=== PATIENT | female | born 1960 | race Caucasian/White ===

== ENCOUNTER 2025-03-12 11:39 | Emergency (ER) | payer OTHER, MEDICARE ==
[~2025-03-12] VITALS: Ht 167.6 cm; Wt 117.9 kg
[~2025-03-12 11:39] MED LIST: ASPI81EC PO; ATOR80 PO; Aspir 8181 MG PO; Diclofenac Sodi50 MG PO; ESCI10 PO; FOLI1 PO; METOPROLOL; MOTION RELIEF25 MG PO; MULVITA PO; Norvasc10 MG PO; OLMESARTAN-HCT1 EAC5 PO; PLAVIX75 MG PO
[2025-03-12] MEDS ORDERED: Morphine Sulfate 4 MG/1 ML Injection IV ONE (12:15)
[2025-03-12 12:38] LABS: BASOPHILS ABSOLUTE AUTO 0.06 K/mm3 (0.00-0.23); BASOPHILS PERCENT AUTO 1 % (0-2); EOSINOPHILS ABSOLUTE AUTO 0.04 K/mm3 (0.00-0.68); EOSINOPHILS PERCENT AUTO 0 % (0-6); Hematocrit 44.2 % (33.0-51.0); Hemoglobin 14.7 g/dL (11.5-16.0); IMMATURE GRAN ABSOLUTE AUTO 0.08 K/mm3 (0.00-0.10); IMMATURE GRAN PERCENT AUTO 1 % (0-1); LYMPHOCYTES ABSOLUTE AUTO 1.06 K/mm3 (0.84-5.20); LYMPHOCYTES PERCENT AUTO 10 % (21-46); MONOCYTES ABSOLUTE AUTO 0.72 K/mm3 (0.16-1.47); MONOCYTES PERCENT AUTO 7 % (4-13); Mean Corpuscular HGB Conc 33.3 g/dL (31.5-36.5); Mean Corpuscular Volume 88 fL (80-100); NEUTROPHILS ABSOLUTE AUTO 9.16 K/mm3 (1.96-9.15); NEUTROPHILS PERCENT AUTO 82 % (41-73); NRBC ABSOLUTE 0.00 K/mm3 (0.00-0.02); NRBC Auto 0.0 /100 WBC (0.0-0.2); Platelet Count 233 K/mm3 (150-400); RDW Coefficient Variation 13.2 % (11.7-14.2); RDW Standard Deviation 42.4 fL (35.1-46.3)
[2025-03-12 12:59] LABS: Prothrombin Time Results 29.0 Sec (9.7-11.5)
[2025-03-12] MEDS ORDERED: Propofol 10mg/ml 20 ml Vial (Procedural) IV SCH (13:55)
[2025-03-12 14:10] LABS: Magnesium, Blood 2.1 mg/dL (1.6-2.4); Thyroid Stimulating Hormone 1.62 uIU/mL (0.360-4.800)
[2025-03-12 14:23] LABS: Anion Gap 7.0 mmol/L (3-11); Blood Urea Nitrogen 21.0 mg/dL (8-24); CO2, Blood 29.0 mmol/L (21-32); Calcium, Blood 10.7 mg/dL (8.5-10.1); Chloride, Blood 105.0 mmol/L (98-108); Creatinine, Blood 0.93 mg/dL (0.40-1.00); Glucose, Blood 178.0 mg/dL (70-99); Potassium, Blood 3.6 mmol/L (3.5-5.5); Sodium, Blood 137.0 mmol/L (136-145)
[2025-03-12] MEDS ORDERED: NS 1,000 ML IV SCH (14:35)
[2025-03-12] MEDS ORDERED: NS 1,000 ML IV ONE (14:37)
[2025-03-12] MEDS ORDERED: ACET500 PO (16:09)
[2025-03-12 16:45] VITALS: BP 161/73
== END 2025-03-12 17:30 | disposition home or self-care (01) ==
LOC: ER 11:39
PROVIDERS: Emergency Medicine
DX: S82.851A Displaced trimalleolar fracture of right lower leg, initial encounter for closed fracture (principal); V48.4XXA Person boarding or alighting a car injured in noncollision transport accident, initial encounter; I69.951 Hemiplegia and hemiparesis following unspecified cerebrovascular disease affecting right dominant side; Z79.01 Long term (current) use of anticoagulants
CPT/HCPCS: 27818; 70450; 72125; 72170; 73600; 73610; 76000; 80048; 82607; 83735; 84439; 84443; 85025; 85610; 85730; 96374-59; 99152; 99284-25; J2270; J2704; J7030

== ENCOUNTER 2025-03-22 11:12 | Day surgery (SDC) | payer MEDICARE ==
[~2025-03-22] VITALS: Ht 162.6 cm; Wt 122.0 kg
[~2025-03-22 11:12] MED LIST changes: +ACET500 PO
[2025-03-22] MEDS ORDERED: CeFAZolin Sodium 3,000 MG VIAL ONE (11:39)
[2025-03-22] MEDS ORDERED: JANTOVEN2 MG PO (12:11)
[2025-03-22] MEDS ORDERED: JANTOVEN1 M2 PO (12:11)
[2025-03-22] MEDS ORDERED: HYDROCODONE-AC1 EA19 PO (12:11)
--- NOTE | 2025-03-22 12:32 | NUR ---
03/22/25 1232 VAZQUEZ KENNEDY PT ASSISTED W/ PAD CHANGED FROM VOIDING URINE IN BRIEF
[2025-03-22] MEDS ORDERED: FentaNYL Citrate 50 MCG/ML 2 ML Injection ONE (13:26)
[2025-03-22] MEDS ORDERED: Midazolam HCl 1MG / ML 2ML Vial ONE (13:27)
[2025-03-22] MEDS ORDERED: Bupivacaine 0.5% W/EPI 1:200000 SDV 30 ML Vial ONE ×2 (13:28→14:40)
[2025-03-22] MEDS ORDERED: HYDROmorphone HCl/Pf 1MG SYR ONE (15:37)
[2025-03-22] MEDS ORDERED: Ondansetron HCl 2 MG / ML 2ML Vial ONE (16:04)
[2025-03-22] MEDS ORDERED: Dexamethasone Sod Phos 10 MG/ML 1ML VIAL ONE (16:04)
[2025-03-22] MEDS ORDERED: Sugammadex Sodium 200 MG/2ML SDV (100 MG/ML) ONE (16:14)
[2025-03-22 17:06] VITALS: BP 122/63
--- NOTE | 2025-03-22 18:27 | NUR ---
03/22/251826 Lydia Beckwith PT TRANSFERED FROM BED TO W/C WITH HELP FROM 3 STAFF MEMBERS. PT WAS THEN TRANSFERED FROM W/C TO CAR WITH 3 STAFF MEMBERS W/O DIFFICULTY. PT'S RIDE STATES THEY ARE GOING TO CALL THE [facility]PART[facility] TO HELP GET PT IN HER HOUSE. PT CAREGIVER WILL STAY THE NIGHT WITH PT VALDEMAR.
== END 2025-03-22 18:21 | disposition home or self-care (01) ==
LOC: ORSCSDS 11:12
PROVIDERS: Orthopaedic Surgery
PROC: 0QSG04Z Reposition Right Tibia with Internal Fixation Device, Open Approach (ICD-10-PCS; principal; 2025-03-22 13:15)
PROC: 0QSJ04Z Reposition Right Fibula with Internal Fixation Device, Open Approach (ICD-10-PCS; principal; 2025-03-22 13:15)
DX: S82.851A Displaced trimalleolar fracture of right lower leg, initial encounter for closed fracture (principal); W18.40XA Slipping, tripping and stumbling without falling, unspecified, initial encounter; I69.351 Hemiplegia and hemiparesis following cerebral infarction affecting right dominant side; I10 Essential (primary) hypertension; E78.5 Hyperlipidemia, unspecified; G47.33 Obstructive sleep apnea (adult) (pediatric); E66.01 Morbid (severe) obesity due to excess calories; Z68.42 Body mass index [BMI] 45.0-49.9, adult; G40.909 Epilepsy, unspecified, not intractable, without status epilepticus; Z79.899 Other long term (current) drug therapy; Z79.01 Long term (current) use of anticoagulants
CPT/HCPCS: 36415; 73610; 85730; A6253; A9270; C1713; J0690; J1100; J1171; J2250; J2405; J2704; J3010; J7120

== ENCOUNTER → 2025-03-29 | Outpatient (CLI) | payer MEDICARE ==
[~2025-03-29] MED LIST changes: +HYDROCODONE-AC1 EA19 PO; +JANTOVEN1 M2 PO; +JANTOVEN2 MG PO
[2025-03-29 14:12] LABS: Source, Urine Clean Catch
[2025-03-29 15:40] LABS: Bilirubin, Urine Neg (Neg); Color, Urine Yellow (P-Yellow); Glucose Qualitative, Urine 1+ (Neg); Ketones, Urine Neg (Neg); Leukocyte Esterase, Urine Neg (Neg); Protein, Urine 1+ (Neg); Specific Gravity, Urine 1.025 (1.003-1.022); Urobilinogen, Urine NORM (Normal)
[2025-03-29 16:16] LABS: Red Blood Cells, Urine 0-2 /hpf (0-2); White Blood Cells, Urine 0-2 /hpf (0-5)
== END | disposition home or self-care (01) ==
LOC: LAB 13:40 → LAB SHORT 13:40
PROVIDERS: Family Medicine
DX: R82.90 Unspecified abnormal findings in urine (principal)
CPT/HCPCS: 81001; 87077; 87086; 87186